=== PATIENT | female | born 1955 | race Hispanic/Latino ===

== ENCOUNTER → 2017-09-26 | Outpatient (CLI) | payer MEDICAID ==
[~2017-09-26] MED LIST: ACET-66 PO; ALEN70TA47 PO; ASPI-1197 PO; BUPR300T53 PO; CITA40TA6 PO; EZET10 PO; FAMO40TA7 PO; IBUP-2070 PO; LISI-613 PO; SAXA1TBM3 PO; SIMV40TA5 PO; TRAZ-144 PO
== END | disposition home or self-care (01) ==
LOC: OIH 09:33
PROVIDERS: ATTEND Orthopaedic Surgery
DX: M75.102 Unspecified rotator cuff tear or rupture of left shoulder, not specified as traumatic (principal); M25.412 Effusion, left shoulder
CPT/HCPCS: 73221

== ENCOUNTER 2017-12-21 07:43 | Day surgery (SDC) | payer MEDICAID ==
[~2017-12-21] VITALS: Ht 152.4 cm; Wt 78.9 kg
[~2017-12-21 07:43] MED LIST changes: +SODIUM CHLORIDE 0.9% 1000ML 1,000 ML IV ONE; -TRAZ-144 PO; +TRAZ-185 PO
[2017-12-21 09:45] VITALS: BP 132/67
[2017-12-21] MEDS ORDERED: PROPOFOL 10 MG/ML 20ML VIAL IV ONE (11:47)
[2017-12-21 11:51] VITALS: BP 103/59
== END 2017-12-21 12:30 | disposition home or self-care (01) ==
LOC: ENDO 07:43 → DAH 07:43 → ENDO 12:30
PROVIDERS: ATTEND Internal Medicine
DX: Z09 Encounter for follow-up examination after completed treatment for conditions other than malignant neoplasm (principal); D12.2 Benign neoplasm of ascending colon; D12.3 Benign neoplasm of transverse colon; K57.30 Diverticulosis of large intestine without perforation or abscess without bleeding; Z86.010 Personal history of colon polyps; Z79.899 Other long term (current) drug therapy; Z79.82 Long term (current) use of aspirin
CPT/HCPCS: 45380; 45385; 82948 ×2; 88305; A4606; J2704; J7030

== ENCOUNTER 2018-01-11 08:27 | Day surgery (SDC) | payer MEDICAID ==
[~2018-01-11] VITALS: Ht 152.4 cm; Wt 81.0 kg
[~2018-01-11 08:27] MED LIST changes: -SODIUM CHLORIDE 0.9% 1000ML 1,000 ML IV ONE
[2018-01-11 11:02] VITALS: BP 114/66
[2018-01-11] MEDS ORDERED: PROPOFOL 10 MG/ML 20ML VIAL IV ONE ×2 (11:36→11:37)
[2018-01-11 11:51] VITALS: BP 101/55
== END 2018-01-11 12:45 | disposition home or self-care (01) ==
LOC: DAH 08:27
PROVIDERS: ATTEND Internal Medicine
DX: K21.0 Gastro-esophageal reflux disease with esophagitis (principal); K31.89 Other diseases of stomach and duodenum; I10 Essential (primary) hypertension; E11.9 Type 2 diabetes mellitus without complications; E78.5 Hyperlipidemia, unspecified; F32.9 Major depressive disorder, single episode, unspecified; Z87.19 Personal history of other diseases of the digestive system; M81.0 Age-related osteoporosis without current pathological fracture; Z90.710 Acquired absence of both cervix and uterus; Z98.890 Other specified postprocedural states; Z90.721 Acquired absence of ovaries, unilateral; Z79.899 Other long term (current) drug therapy
CPT/HCPCS: 43239; 82948 ×2; 88305; 88312; 93005; A4606; J2704 ×2

== ENCOUNTER 2018-11-25 02:12 | Emergency (ER) | payer MEDICAID ==
[~2018-11-25 02:12] MED LIST changes: +ALEN70TA10 PO; -ALEN70TA47 PO; -IBUP-2070 PO
[2018-11-25] MEDS ORDERED: BENZONATATE 100 MG CAPSULE PO ONE (04:52)
== END 2018-11-25 05:09 | disposition home or self-care (01) ==
LOC: EDH 02:12
DX: J20.9 Acute bronchitis, unspecified (principal); I10 Essential (primary) hypertension; E78.5 Hyperlipidemia, unspecified; E11.9 Type 2 diabetes mellitus without complications; F32.9 Major depressive disorder, single episode, unspecified; Z98.890 Other specified postprocedural states
CPT/HCPCS: 71046; 87804

== ENCOUNTER 2021-04-13 23:22 | Emergency (ER) | payer OTHER, MEDICARE ==
[~2021-04-13] VITALS: Ht 154.9 cm; Wt 81.6 kg
[~2021-04-13 23:22] MED LIST changes: -ALEN70TA10 PO; +ALEN70TA80 PO; -EZET10 PO; +EZET10TA13 PO; -LISI-613 PO; +LISI20TA24 PO; +SIMV-46 PO; -SIMV40TA5 PO
[2021-04-13 23:49] VITALS: BP 127/63
[2021-04-14 02:23] LABS: BASOPHILS % (AUTO) 0.7 % (0.0-5.0); EOSINOPHILS % (AUTO) 3.4 % (0.0-8.0); HEMATOCRIT 35.3 % (36-48); LYMPHOCYTES % (AUTO) 27.1 % (21.0-51.0); MEAN CORPUSCULAR HEMOGLOBIN 28.7 pg (27.0-33.0); MEAN CORPUSCULAR HGB CONC 33.1 g/dL (32.0-36.0); MEAN CORPUSCULAR VOLUME 86.7 fL (79-99); MONOCYTES % (AUTO) 5.7 % (3.0-13.0); NEUTROPHILS % (AUTO) 62.3 % (40.0-77.0); PLATELET COUNT (AUTO) 240 K/uL (130-400); RED BLOOD CELL COUNT(AUTO) 4.07 MIL/uL (4.00-5.50); RED CELL DISTRIBUTION WIDTH 13.4 % (11.0-15.5); WHITE BLOOD COUNT (AUTO) 11.9 K/uL (4.8-10.8)
[2021-04-14 02:34] LABS: APPEARANCE,URINE Clear (CLEAR); BILIRUBIN,URINE Negative (NEGATIVE); COLOR,URINE Yellow (YELLOW); GLUCOSE, URINE (UA) >=1000 mg/dL (NEGATIVE); KETONES,URINE Negative (NEGATIVE); LEUKOCYTE ESTERASE ,URINE Negative (NEGATIVE); NITRATE,URINE Negative (NEGATIVE); OCCULT BLOOD,URINE Negative (NEGATIVE); PH,URINE 5.5 (5.0-8.0); PROTEIN,URINE Negative (NEGATIVE); UROBILINOGEN,URINE 0.2 mg/dL (0.2-1.0)
[2021-04-14 02:48] LABS: CREATININE 0.8 mg/dL (0.5-1.5); POTASSIUM 3.9 mmol/L (3.5-5.1)
[2021-04-14 02:52] LABS: ALBUMIN 3.6 g/dL (3.5-5.0); BILIRUBIN,TOTAL 0.2 mg/dL (0.2-1.0); TOTAL PROTEIN, SERUM 7.5 g/dL (6.0-8.3)
[2021-04-14 02:54] LABS: BACTERIA,URINE Few /HPF (None Seen); SQUAMOUS EPITHELIAL CELL,UR 0-2 /HPF (0-2); WBC,URINE 0-1 /HPF (0-1)
[2021-04-14] MEDS ORDERED: KETOROLAC 30MG VIAL (30MG/ML) IV ONE (03:30)
[2021-04-14] MEDS ORDERED: ORPHENADRINE CITRATE 30 MG/ML ML IV ONE (03:30)
[2021-04-14] MEDS ORDERED: ORPH-43 PO (04:26)
[2021-04-14] MEDS ORDERED: MELO7.5T12 PO (04:26)
[2021-04-14] MEDS ORDERED: LIDOP TP (04:26)
== END 2021-04-14 05:01 | disposition home or self-care (01) ==
LOC: EDH 23:22
DX: E86.9 Volume depletion, unspecified (principal); R53.81 Other malaise; M62.838 Other muscle spasm; Z20.822 Contact with and (suspected) exposure to COVID-19; E78.00 Pure hypercholesterolemia, unspecified; E11.9 Type 2 diabetes mellitus without complications; F32.9 Major depressive disorder, single episode, unspecified; I10 Essential (primary) hypertension; Z79.1 Long term (current) use of non-steroidal anti-inflammatories (NSAID); Z79.82 Long term (current) use of aspirin; Z79.84 Long term (current) use of oral hypoglycemic drugs; Z79.899 Other long term (current) drug therapy
CPT/HCPCS: 36415; 71045; 80053; 81001; 83690; 84484; 85025; 87635; 87804 ×2; 96374; 96375; 99284; C9803; J1885; J2360

== ENCOUNTER 2021-04-21 16:34 | Emergency (ER) | payer OTHER, MEDICARE ==
[~2021-04-21] VITALS: Ht 152.4 cm; Wt 90.7 kg
[~2021-04-21 16:34] MED LIST changes: +LIDOP TP; +MELO7.5T12 PO; +ORPH-43 PO
[2021-04-21 17:03] LABS: BASOPHILS % (AUTO) 0.7 % (0.0-5.0); EOSINOPHILS % (AUTO) 2.1 % (0.0-8.0); HEMATOCRIT 37.4 % (36-48); LYMPHOCYTES % (AUTO) 20.8 % (21.0-51.0); MEAN CORPUSCULAR HEMOGLOBIN 28.5 pg (27.0-33.0); MEAN CORPUSCULAR HGB CONC 33.4 g/dL (32.0-36.0); MEAN CORPUSCULAR VOLUME 85.2 fL (79-99); MONOCYTES % (AUTO) 6.3 % (3.0-13.0); NEUTROPHILS % (AUTO) 69.5 % (40.0-77.0); PLATELET COUNT (AUTO) 271 K/uL (130-400); RED BLOOD CELL COUNT(AUTO) 4.39 MIL/uL (4.00-5.50); RED CELL DISTRIBUTION WIDTH 13.3 % (11.0-15.5); WHITE BLOOD COUNT (AUTO) 12.7 K/uL (4.8-10.8)
[2021-04-21 17:12] LABS: APPEARANCE,URINE Clear (CLEAR); BILIRUBIN,URINE Negative (NEGATIVE); COLOR,URINE Yellow (YELLOW); GLUCOSE, URINE (UA) Negative (NEGATIVE); KETONES,URINE Negative (NEGATIVE); LEUKOCYTE ESTERASE ,URINE Trace (NEGATIVE); NITRATE,URINE Negative (NEGATIVE); OCCULT BLOOD,URINE Trace (NEGATIVE); PROTEIN,URINE POS 2+ mg/dL (NEGATIVE); UROBILINOGEN,URINE 0.2 mg/dL (0.2-1.0)
[2021-04-21 17:17] LABS: CREATININE 0.9 mg/dL (0.5-1.5)
[2021-04-21 17:19] LABS: BACTERIA,URINE Rare /HPF (None Seen); MUCUS,URINE Rare LPF (None Seen); RBC,URINE 0-1 /HPF (0-1); SQUAMOUS EPITHELIAL CELL,UR Few /HPF (0-2); WBC,URINE 0-1 /HPF (0-1)
[2021-04-21 17:22] LABS: BILIRUBIN,TOTAL 0.3 mg/dL (0.2-1.0); TOTAL PROTEIN, SERUM 8.3 g/dL (6.0-8.3)
[2021-04-21 17:25] LABS: INR 1.01 (0.85-1.15)
[2021-04-21 17:27] LABS: B-TYPE NATRIURETIC PEPTIDE < 5 pg/mL (0-100)
[2021-04-21] MEDS ORDERED: MORPHINE 4 MG SYG IM ONE (18:00)
[2021-04-21] MEDS ORDERED: PROMETHAZINE HCL 25 MG/ML 1ML AMPULE IM ONE (18:00)
[2021-04-21] MEDS ORDERED: 0.9%NACL 1000ML 1,000 ML IV ONE ×2 (18:00)
[2021-04-21 19:30] VITALS: BP 132/74
[2021-04-21] MEDS ORDERED: ONDA4TAB10 PO (20:29)
[2021-04-21] MEDS ORDERED: FAMO-136 PO (20:29)
[2021-04-21] MEDS ORDERED: DICY20TA2 PO (20:29)
== END 2021-04-21 22:03 | disposition home or self-care (01) ==
LOC: EDH 16:34
DX: K29.70 Gastritis, unspecified, without bleeding (principal); R07.89 Other chest pain; I10 Essential (primary) hypertension; E11.9 Type 2 diabetes mellitus without complications; E78.00 Pure hypercholesterolemia, unspecified; Z98.890 Other specified postprocedural states; Z79.82 Long term (current) use of aspirin; Z79.899 Other long term (current) drug therapy
CPT/HCPCS: 36415; 71045; 74176; 80053; 80061; 81001; 82550; 83690; 83880; 84484; 85025; 85378; 85610; 85730; 93005; 96360; 96372 ×2; 99285; J2270; J2550; J7030